=== PATIENT | female | born 1980 | race Caucasian/White ===

== ENCOUNTER 2020-01-22 15:24 | Inpatient (IN) | payer OTHER ==
[~2020-01-22] VITALS: Ht 167.6 cm; Wt 81.1 kg
--- NOTE | ~2020-01-22 | P ---
[facility] [place] [address] PROCEDURE REPORT Name: LISET VILLEGAS Room #: 464-P ADM IN M.R.#: [id number] Admission: 01/22/20 Attend Phys: India Garber MD Discharge: Date of : 82 Report #: [id number] THIS REPORT FOR: cc: Yung Alexander K. Steven DO McElhinney, Christian C. MD ~ CC: India Alexander DATE OF SERVICE: 01/23/2020 PROCEDURE PERFORMED: Upper endoscopy with biopsies. HISTORY OF PRESENT ILLNESS: The patient is a 39-year-old female who was admitted on 01/22/2020 with nausea, vomiting, generalized weakness. She has a history of alcohol abuse, been having nausea and vomiting for the last 4 days. Also, complains of dysphagia. No previous history of endoscopy. She does complain of heartburn symptoms. She does not take any antacids. She has also been hoarse for the same period of time. She was noted to be anemic with a hemoglobin of 9. She does report a small amount of bright red blood per rectum and a history of constipation. No previous history of colonoscopy and no family history of colon cancer. DESCRIPTION OF PROCEDURE: The risks and benefits of the procedure were explained to the patient, those risks including but not limited to bleeding, perforation and the risk of sedation. She understood these risks and gave informed consent. Sedation was given using propofol per anesthesia. Next, using a standard Olympus upper endoscope, the scope was placed in the patient's mouth and advanced under direct vision through the esophagus, stomach and into the second portion of the duodenum. The upper esophagus was normal. In the mid to distal esophagus, severe grade D erosive esophagitis was noted. Several biopsies were obtained to rule out the possibility of Gabby, CMV and herpes. I did not proceed with dilation today due to the severe esophagitis. The esophagus was mildly narrowed in the distal esophagus. Upon entering the stomach, a small hiatal hernia was noted. There was a moderate diffuse gastritis noted throughout the stomach. Several small clean white based ulcers approximately 2-3 mm in size were noted in the antrum. No evidence of bleeding. Biopsies were obtained to rule out H. pylori. The pylorus was normal and patent. The duodenal bulb, first and second portion were all normal. Biopsies were obtained to rule out the possibility of celiac sprue. The scope was then withdrawn and the procedure terminated. The patient tolerated the procedure well. IMPRESSION: 1. Severe grade D erosive esophagitis. [address] [address] PROCEDURE REPORT Name: VILLEGASLISET Room #: 464-P [facility] IN M.R.#: [id number] Admission: 01/22/20 Attend Phys: India Garber MD Discharge: Date of : 82 Report #: [id number] 2. Small hiatal hernia. 3. Moderate gastritis. 4. A few small tiny gastric ulcers in the antrum. RECOMMENDATIONS: 1. Recommend b.i.d. PPI therapy. 2. We will add liquid Carafate at this time. 3. Start clear liquids as tolerated and advance. Continue antinausea medications. 4. Await biopsy results. Thank you for allowing me to participate in her care. By: 1132 1844 Ulises Lee MD /nt
[~2020-01-22 15:24] MED LIST: ACETAMINOPHEN-1 EAC1 PO; ADULT LOW DOSE81 MG PO; AMLODIPINE BESYL5 M1 PO; CHLORDIAZEPOXID25 M1 PO; CLONIDINE HCL0.1 M1 PO; CLONIDINE HCL0.2 M2 PO; COZAAR 25 MG TA25 M1 PO; HYDROCHLOROTHIA25 M1 PO; NOHOMEMEDICATIONS; ULTRAM 50MG TAB50 MG PO; VITAMIN B-1100 M2 PO; ZOFRAN ODT4 MG PO
[2020-01-22 15:29] VITALS: BP 128/88
[2020-01-22] MEDS ORDERED: SERTRALINE HCL50 MG PO (15:34)
[2020-01-22 15:59] LABS: HEMATOCRIT 28.6 % (37.0-47.0); HEMOGLOBIN 9.9 gm/dL (12.0-15.0); MCH 37.8 pg (26.0-34.0); MCHC 34.6 g/dL (28.0-37.0); MCV 109.2 fL (80.0-100.0); RBC 2.62 mil/uL (4.20-5.00); RDW 14.7 % (10.5-14.5); WBC 7.7 thou/uL (4.0-11.0)
[2020-01-22 16:13] LABS: ANION GAP 14 mmol/L (7-16); BUN 10 mg/dL (7-18); CALCIUM 9.2 mg/dL (8.5-10.1); CHLORIDE 94 mmol/L (98-107); CO2 25 mmol/L (21-32); CREATININE 1.1 mg/dL (0.6-1.0); GLUCOSE 118 mg/dL (74-106); MAGNESIUM 1.1 mg/dL (1.8-2.4); SODIUM 133 mmol/L (136-145); TROPONIN-I <0.06 ng/mL (<0.06)
[2020-01-22 16:18] LABS: POTASSIUM 2.2 mmol/L (3.5-5.1)
[2020-01-22 19:10] LABS: ALBUMIN 3.1 g/dL (3.4-5.0); DIRECT BILIRUBIN 1.6 mg/dL (<0.1-0.2); TOTAL PROTEIN 7.4 g/dL (6.4-8.2)
[2020-01-22 20:52] LABS: HEMATOCRIT 24.4 % (37.0-47.0); HEMOGLOBIN 8.5 gm/dL (12.0-15.0)
[2020-01-23 00:29] VITALS: BP 93/60
[2020-01-23 03:56] VITALS: BP 115/75
[2020-01-23 06:06] VITALS: BP 103/73
--- NOTE | 2020-01-23 07:45 | EKG ---
[facility] [place] [address] ELECTROCARDIOGRAM REPORT Name: LISET VILLEGAS Room #: 464-P ADM IN M.R.#: [id number] Admission: 01/22/20 Attend Phys: India Garber MD Discharge: Date of : 82 Report #: [id number] THIS REPORT FOR: cc: Yung Alexander K. 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1980 Requested By: Fox Campbell Order Number: [id number] MD: Tyrone Chavez Measurements Intervals [place] Rate: 96 P: 53 [place]: 178 QRS: 61 QRSD: 99 T: 114 QT: 364 QTc: 460 Interpretive Statements Sinus rhythm Ventricular premature complex Nonspecific T abnrm, anterolateral leads Compared to ECG 03/19/2016 10:37:25 Ventricular premature complex(es) now present T-wave abnormality no longer present Electronically Signed On 01-23-2020 7:45:00 CDT by Tyrone Chavez [email or web address] <ELECTRONICALLY SIGNED> By: Tyrone Cahvez MD, FACC 01/23/20 0745 30 30 Tyrone Chavez MD, FACC /EPI
--- NOTE | 2020-01-23 08:13 | NUR ---
ASSUMED CARE OF PT AT 0555HRS. PT AOX4 AND LETS NEEDS BE KNOWN. PT WAS ORIENTED TO THE UNIT AND HER ROOM. PT SIGNED HER OWN CONSENTS. PT PUT ONN TELE. PT DENIES PAIN, NAUSEA OR SOA. REPORT GIVEN TO AM RAGHAV.
[2020-01-23 08:38] LABS: HEMATOCRIT 26.2 % (37.0-47.0); MCH 37.8 pg (26.0-34.0); MCHC 34.3 g/dL (28.0-37.0); MCV 110.1 fL (80.0-100.0); RBC 2.38 mil/uL (4.20-5.00); RDW 14.8 % (10.5-14.5); WBC 6.4 thou/uL (4.0-11.0)
[2020-01-23 09:04] LABS: ALBUMIN 2.8 g/dL (3.4-5.0); CALCIUM 8.4 mg/dL (8.5-10.1); CREATININE 0.9 mg/dL (0.6-1.0); TOTAL BILIRUBIN 1.8 mg/dL (0.2-1.0); TOTAL PROTEIN 6.8 g/dL (6.4-8.2)
[2020-01-23 09:09] LABS: POTASSIUM 2.9 mmol/L (3.5-5.1)
--- NOTE | 2020-01-23 11:41 | NUR ---
ASSUMED CARE AT 0700 TODAY. PT. NPO. SHE WENT FOR [facility] THIS MORNING. SEVERAL BYOPSIES TAKEN PER STAFF THERE. SHE WAS TO HAVE AN ABDOMINAL ULTRASOUND TODAY ALSO BUT DUE TO [facility] BEFORE ULTRASOUND, IT WAS POSTPONED UNTIL TOMORROW. PT. NPO AFTER MIDNIGHT FOR THIS REASON. PT. PLEASANT AND COOPERATIVE WITH PROCEEDURES AND ALL STAFF.
--- NOTE | 2020-01-23 12:30 | EKG ---
[facility] [place] [address] ELECTROCARDIOGRAM REPORT Name: LISET VILLEGAS Room #: 464-P ADM IN M.R.#: [id number] Admission: 01/22/20 Attend Phys: India Garber MD Discharge: Date of : 82 Report #: [id number] THIS REPORT FOR: cc: Yung Alexander K. Steven DO Lundgren, Craig H. MD [facility] THIS REPORT FOR: //name// [facility] ED Test Date: 2020-01-22 Test Time: 19:31:46 Pat Name: LISET VILLEGAS Department: Room: 464 Gender: F [employer]: MARY : 1980 Requested By: India Garber Order Number: [id number] MD: Antwan Durbin Measurements Intervals [place] Rate: 96 P: 53 [place]: 178 QRS: 61 QRSD: 99 T: 114 QT: 364 QTc: 460 Interpretive Statements Sinus rhythm Ventricular premature complex Nonspecific ST and T wave abnormality Compared to ECG 03/19/2016 10:37:25 Ventricular premature complex(es) now present T-wave abnormality no longer present Electronically Signed On 01-23-2020 12:30:36 CDT by Antwan Durbin [email or web address] <ELECTRONICALLY SIGNED> By: Antwan Durbin MD, FACC 01/23/20 1230 30 30 Antwan Durbin MD, FACC /EPI
[2020-01-23 16:00] VITALS: BP 113/77
[2020-01-23 17:40] VITALS: BP 113/77
[2020-01-23 19:29] VITALS: BP 118/83
[2020-01-24 00:25] VITALS: BP 93/60
[2020-01-24 04:38] VITALS: BP 110/77
[2020-01-24 05:22] LABS: HEMATOCRIT 24.7 % (37.0-47.0); HEMOGLOBIN 8.5 gm/dL (12.0-15.0)
--- NOTE | 2020-01-24 07:36 | NUR ---
ASSUMED PT CARE AROUND 1930. AXOX4. STB ASSIST. KEPT NPO POST MN FOR US ABD COMPLETED THIS AM. PREVIOUS DIET RESUMED. NO S/S ACUTE DISTRESS NOTED OR REPORTED AT THIS TIME. CARE TRANSFERRED TO AM RN AT THIS TIME.
[2020-01-24] MEDS ORDERED: PROTONIX40 M2 PO (08:31)
[2020-01-24] MEDS ORDERED: CARAFATE 11 GM/10 M1 PO (08:31)
[2020-01-24 09:51] VITALS: BP 122/88
[2020-01-24 12:32] VITALS: BP 122/88
[2020-01-24 14:28] LABS: URINE BILIRUBIN 3+ (Negative); URINE BLOOD TRACE (Negative); URINE CLARITY CLEAR; URINE COLOR YELLOW; URINE GLUCOSE-RANDOM* NEGATIVE (Negative); URINE KETONES 1+ (Negative); URINE PROTEIN (DIPSTICK) 1+ (Negative); URINE SPECIFIC GRAVITY 1.025 (1.005-1.035)
[2020-01-24 14:29] LABS: URINE LEUKOCYTES-REFLEX 1+ (Negative); URINE NITRITE-REFLEX POSITIVE (Negative)
[2020-01-24 14:30] LABS: ICTOTEST (BILI CONFIRMATORY) Positive (Negative)
[2020-01-24 14:33] LABS: SQUAMOUS 0-3 Few /LPF (0-3)
[2020-01-24 14:35] LABS: HYALINE CASTS 0-3 Few /LPF (None Seen); URINE RBC 0-2 Rare /HPF (0-2)
[2020-01-24 14:36] LABS: CRYSTALS None Seen /LPF (None Seen)
[2020-01-24 14:37] LABS: URINE WBC-REFLEX 0-5 Rare /HPF (0-5)
[2020-01-24 14:48] LABS: AMP/METHAMP Negative (Negative); BARBITURATES Negative (Negative); BENZODIAZEPINES POSITIVE (Negative); COCAINE Negative (Negative); METHADONE Negative (Negative); OPIATES Negative (Negative); PCP POSITIVE (Negative)
--- NOTE | 2020-01-24 16:55 | NUR ---
PT A&OX4, VSS, DENIES PAIN. PATIENT DENIES N/V. PATIENT MOVED TO FULL LIQUIDS AND TOLERATED. PATIENT DISCHARGED HOME, IV REMOVED, ALL BELONGINGS TAKE. NO DISTRESS AT TIME OF DISCHARGE. PATIENT COMMUNICATES UNDERSTANDING OF DISCHARGE PAPERWORK. TELE MONITOR REMOVED.
--- NOTE | 2020-01-27 16:06 | PATH ---
[facility] [place] [address] PATHOLOGY RPT PROCEDURE Name: MELBA VILLEGAS Room #: 464-P DIS IN M.R.#: [id number] Admission: 01/22/20 Date of : 82 Discharge: 01/24/20 Report #: [id number] Path Case #: [id number] [facility] Accession Number: [id number] . 01 Material submitted: . PART A: duodenum - BIOPSY OF DUODENUM R/O SPRUE PART B: stomach - BIOPSY OF GASTRITIS R/O H. PYLORI PART C: esophagus - BIOPSY OF ESOPHAGUS R/O CMV, GABBY, HERPES . 01 Clinical history: . N/V, HYPOK, HYPOMAG, COVID PUI . 02 Diagnosis: A. Small bowel mucosa, duodenum R/O sprue, endoscopic biopsy: - Moderate acute and chronic duodenitis associated with villous blunting. - Negative for increase in intraepithelial lymphocytes. - No definite dysplasia identified. . B. Gastric mucosa, gastritis R/O H. pylori, endoscopic biopsy: - Mild active gastritis with features of reactive gastropathy. - Negative for intestinal metaplasia or atrophy. - Negative for Helicobacter pylori (properly controlled immunohistochemical stain performed). . C. Squamous mucosa, esophagus, endoscopic biopsy: - Fragments of an ulcer with focal squamous epithelium showing marked reactive changes. (Please see comment). - No definite intestinal metaplasia or dysplasia present. (IUV:reginaldo; 01/26/2020) S 01/26/2020 1319 Local . 02 Comment: Part A: Examination shows focal fundic-type metaplasia in a background of moderate acute and chronic nonspecific duodenitis. The findings may be suggestive of peptic duodenitis. Villous blunting is identified in association with the peptic duodenitis. The lack of increase in intraepithelial lymphocytes argues against sprue. . Part C: Special stain GMS fungal stain, and CMV* as well as HSV1* are ordered on block C1. The results of these will be reported in an addendum to follow. (IUV:reginaldo; 01/26/2020) . . *This test was developed and its performance characteristics determined by [facility]. It has not been cleared or approved by the U.S. Food and Drug Administration. The FDA has determined that such clearance or approval is [address] [address] PATHOLOGY RPT PROCEDURE Name: MELBA VILLEGAS Room #: 464-P DIS IN M.R.#: [id number] Admission: 01/22/20 Date of : 82 Discharge: 01/24/20 Report #: [id number] Path Case #: [id number] not necessary. This test is used for clinical purposes. It should not be regarded as investigational or for research. This laboratory is certified under the Clinical Laboratory Improvement Amendments of 1988 (CLIA) as qualified to perform high complexity clinical laboratory testing. . 02 Addendum: . Addendum is issued subsequent to reviewing well-controlled stains. . Block C1 . Special stain GMS - No definite fungal elements identified. . *CMV immunohistochemical stain - No definite CMV identified. . *HSV1 immunohistochemical stain - No definite herpes identified. . The originally rendered diagnosis remains unchanged. (IUV:01/27/20) . . *This test was developed and its performance characteristics determined by [facility]. It has not been cleared or approved by the U.S. Food and Drug Administration. The FDA has determined that such clearance or approval is not necessary. This test is used for clinical purposes. It should not be regarded as investigational or for research. This laboratory is certified under the Clinical Laboratory Improvement Amendments of 1988 (CLIA) as qualified to perform high complexity clinical laboratory testing. . . Professional services performed by [facility] at [facility], [address] [place], [place] [address] , [place] [address]. Technical services performed by [facility] at [address] [place] [address], [address] [place] [address]. [facility], [facility]/01/27/2020 Addendum Electronically Signed by Narcisa Myers MD, Pathologist . 02 Electronically signed: . Narcisa Myers MD, Pathologist NPI- [id number] . 01 Gross description: . A. Received in formalin labeled "Melba Villegas, BX of duodenum rule out sprue" are multiple duong-brown soft tissue fragments measuring in aggregate 0.8 x 0.5 x 0.1 cm. The specimen is submitted entirely in A1. . B. Received in formalin labeled "Melba Villegas, BX of gastritis rule out H. pylori" are multiple duong-brown soft tissue fragments measuring in aggregate 0.5 x 0.3 x 0.1 cm. The specimen is submitted entirely in B1. . [facility] [address] [place] [address] PATHOLOGY RPT PROCEDURE Name: VILLEGASMELBA Room #: 464-P DIS IN M.R.#: [id number] Admission: 01/22/20 Date of : 82 Discharge: 01/24/20 Report #: [id number] Path Case #: [id number] C. Received in formalin labeled "Melba Villegas, BX of esophagus rule out CMV, herpes, Gabby" are multiple duong-brown soft tissue fragments measuring in aggregate 0.4 x 0.3 x 0.1 cm. The specimen is submitted entirely in C1. ([facility] 01/25/2020) [facility] 01/25/2020 1042 Local . 02 Pathologist provided ICD-10: K29.80, K29.70, K22.10 . 02 CPT . 725685, 071247, 457760, Q08956, U86421, 889868 Specimen Comment: A courtesy copy of this report has been sent to [phone] Specimen Comment: [phone], Specimen Comment: Report sent to ,DR CARO / DR JAIME Performed at: 01 [facility] [address] [facility] [address] [place] [id number] MD Mert Arriola MD Phone: [phone] Performed at: [address] [facility] [id number] MD Narcisa Myers MD Phone: [phone]
== END 2020-01-24 17:08 | disposition home or self-care (01) | DRG 392 ==
LOC: ER 15:24 → EROBS 17:48 → 4W 01-23 05:48
PROVIDERS: Emergency Medicine; ADMIT Hospitalist; ATTEND Hospitalist
PROC: 0DB28ZX Excision of Middle Esophagus, Via Natural or Artificial Opening Endoscopic, Diagnostic (ICD-10-PCS; principal; 2020-01-22)
PROC: 0DB68ZX Excision of Stomach, Via Natural or Artificial Opening Endoscopic, Diagnostic (ICD-10-PCS; principal; 2020-01-22)
PROC: 0DB98ZX Excision of Duodenum, Via Natural or Artificial Opening Endoscopic, Diagnostic (ICD-10-PCS; principal; 2020-01-22)
PROC: 0DB38ZX Excision of Lower Esophagus, Via Natural or Artificial Opening Endoscopic, Diagnostic (ICD-10-PCS; principal; 2020-01-22)
DX: K29.00 Acute gastritis without bleeding (principal); E87.1 Hypo-osmolality and hyponatremia; R65.10 Systemic inflammatory response syndrome (SIRS) of non-infectious origin without acute organ dysfunction; N17.9 Acute kidney failure, unspecified; K44.9 Diaphragmatic hernia without obstruction or gangrene; K21.00 Gastro-esophageal reflux disease with esophagitis, without bleeding; D64.9 Anemia, unspecified; E87.6 Hypokalemia; E83.42 Hypomagnesemia; F32.9 Major depressive disorder, single episode, unspecified; F10.11 Alcohol abuse, in remission; E86.0 Dehydration; F41.9 Anxiety disorder, unspecified; I10 Essential (primary) hypertension; Z20.828 Contact with and (suspected) exposure to other viral communicable diseases; Z79.899 Other long term (current) drug therapy; Z87.891 Personal history of nicotine dependence
CPT/HCPCS: 10045; 62110; 62900; 70005

== ENCOUNTER 2020-02-24 16:18 | Emergency (ER) | payer OTHER ==
[~2020-02-24] VITALS: Ht 162.6 cm; Wt 72.6 kg
[~2020-02-24 16:18] MED LIST changes: +CARAFATE 11 GM/10 M1 PO; +CHLORDIAZEPOXIDE5 M2 PO; +PROTONIX40 M2 PO; +SERTRALINE HCL50 MG PO
[2020-02-24 16:21] VITALS: BP 128/85
[2020-02-24] MEDS ORDERED: MOBIC15 MG PO (17:19)
== END 2020-02-24 17:44 | disposition home or self-care (01) ==
LOC: ER 16:18
DX: S80.01XA Contusion of right knee, initial encounter (principal); I10 Essential (primary) hypertension; F17.210 Nicotine dependence, cigarettes, uncomplicated; Z79.899 Other long term (current) drug therapy; V49.9XXA Car occupant (driver) (passenger) injured in unspecified traffic accident, initial encounter; Y93.89 Activity, other specified; Y92.410 Unspecified street and highway as the place of occurrence of the external cause; Y99.8 Other external cause status

== ENCOUNTER 2020-03-31 11:33 | Emergency (ER) | payer OTHER ==
[~2020-03-31] VITALS: Ht 170.2 cm; Wt 68.0 kg
[~2020-03-31 11:33] MED LIST changes: +MOBIC15 MG PO
[2020-03-31] MEDS ORDERED: AMLODIPINE BESY10 MG PO (12:01)
[2020-03-31 13:01] LABS: URINE BILIRUBIN 2+ (Negative); URINE BLOOD 2+ (Negative); URINE CLARITY SL CLOUDY; URINE COLOR BROWN; URINE GLUCOSE-RANDOM* TRACE (Negative); URINE KETONES 1+ (Negative); URINE PROTEIN (DIPSTICK) 1+ (Negative); URINE SPECIFIC GRAVITY 1.025 (1.005-1.035)
[2020-03-31 13:03] LABS: URINE LEUKOCYTES-REFLEX 2+ (Negative); URINE NITRITE-REFLEX POSITIVE (Negative)
[2020-03-31 13:04] LABS: ABSOLUTE NEUTROPHILS 3.5 thou/uL (1.4-8.2); BASOPHILS 0.9 % (0.0-2.0); EOSINOPHILS 2.1 % (0.0-3.0); HEMATOCRIT 38.4 % (37.0-47.0); HEMOGLOBIN 12.7 gm/dL (12.0-15.0); LYMPHOCYTES 34.4 % (24.0-44.0); MCH 34.3 pg (26.0-34.0); MCHC 33.1 g/dL (28.0-37.0); MCV 103.7 fL (80.0-100.0); MONOCYTES 5.1 % (1.0-8.0); PLATELET COUNT 224 thou/uL (150-400); POLYS 57.5 % (36.0-66.0); RBC 3.71 mil/uL (4.20-5.00); RDW 14.4 % (10.5-14.5); WBC 6.1 thou/uL (4.0-11.0)
[2020-03-31 13:05] LABS: ICTOTEST (BILI CONFIRMATORY) Positive (Negative)
[2020-03-31 13:29] LABS: CALCIUM 8.6 mg/dL (8.5-10.1); CREATININE 0.5 mg/dL (0.6-1.0); MUCUS 4-6 Moderate strn/LPF (None Seen); SQUAMOUS 0-3 Few /LPF (0-3)
[2020-03-31 13:30] LABS: AMORPHOUS URATES Moderate /LPF (None Seen); CASTS None Seen /LPF (None Seen)
[2020-03-31 13:32] LABS: BACTERIA-REFLEX >30 Many /HPF (None Seen); URINE RBC 3-10 Few /HPF (0-2); URINE WBC-REFLEX 6-15 Few /HPF (0-5)
[2020-03-31 13:36] LABS: ALBUMIN 2.7 g/dL (3.4-5.0); TOTAL BILIRUBIN 0.8 mg/dL (0.2-1.0); TOTAL PROTEIN 7.6 g/dL (6.4-8.2)
[2020-03-31 14:34] LABS: FOLIC ACID 1.8 ng/mL (8.6-58.9)
[2020-03-31] MEDS ORDERED: FOLTX TABLET1 EAC1 PO (15:09)
[2020-03-31] MEDS ORDERED: POTASSIUM20 PO (15:09)
[2020-03-31] MEDS ORDERED: KEFLEX500 M1 PO (15:09)
[2020-03-31] MEDS ORDERED: VITAMIN B-1100 M2 PO (15:30)
[2020-03-31 16:00] VITALS: BP 112/86
== END 2020-03-31 16:05 | disposition home or self-care (01) ==
LOC: ER 11:33
PROVIDERS: Physician Assistant
DX: G62.1 Alcoholic polyneuropathy (principal); N39.0 Urinary tract infection, site not specified; E87.6 Hypokalemia; E53.8 Deficiency of other specified B group vitamins; I10 Essential (primary) hypertension; F17.210 Nicotine dependence, cigarettes, uncomplicated; Z79.899 Other long term (current) drug therapy

== ENCOUNTER 2020-05-17 16:56 | Inpatient (IN) | payer OTHER ==
[~2020-05-17] VITALS: Ht 170.2 cm; Wt 102.9 kg
[~2020-05-17 16:56] MED LIST changes: +AMLODIPINE BESY10 MG PO; +FOLTX TABLET1 EAC1 PO; +KEFLEX500 M1 PO; +POTASSIUM20 PO
[2020-05-17 16:58] VITALS: BP 95/56
[2020-05-17 17:45] LABS: HEMATOCRIT 23.3 % (37.0-47.0)
[2020-05-17 17:47] LABS: HEMOGLOBIN 7.9 gm/dL (12.0-15.0); MCV 105.6 fL (80.0-100.0); PLATELET COUNT 192 thou/uL (150-400); RBC 2.21 mil/uL (4.20-5.00); RDW 17.6 % (10.5-14.5); WBC 24.3 thou/uL (4.0-11.0)
[2020-05-17 17:53] LABS: ANION GAP 14 mmol/L (7-16); BUN 27 mg/dL (7-18); CALCIUM 7.9 mg/dL (8.5-10.1); CHLORIDE 96 mmol/L (98-107); CO2 23 mmol/L (21-32); CREATININE 4.1 mg/dL (0.6-1.0); GLUCOSE 127 mg/dL (74-106); POTASSIUM 3.6 mmol/L (3.5-5.1); SODIUM 133 mmol/L (136-145)
[2020-05-17 18:13] LABS: ALBUMIN 1.1 g/dL (3.4-5.0); LIPASE 43 U/L (73-393); MAGNESIUM 1.8 mg/dL (1.8-2.4); SGOT 121 U/L (15-37); SGPT 51 U/L (30-65); TOTAL BILIRUBIN 16.2 mg/dL (0.2-1.0); TOTAL PROTEIN 5.7 g/dL (6.4-8.2); TROPONIN-I <0.06 ng/mL (<0.06)
[2020-05-17 19:57] LABS: APTT 74.5 Seconds (24.5-32.8); INR 2.9; PROTIME 30.3 Seconds (9.3-11.4)
[2020-05-17 20:06] LABS: ABSOLUTE NEUTROPHILS 12.4 thou/uL (1.4-8.2); NUCLEATED RBCS 1 /100WBC
[2020-05-17 20:08] LABS: ANISOCYTOSIS 1+; HYPOCHROMASIA SLIGHT; MACROCYTES 1+
[2020-05-17 22:37] LABS: URINE BILIRUBIN 3+ (Negative); URINE BLOOD TRACE (Negative); URINE CLARITY CLOUDY; URINE COLOR BROWN; URINE GLUCOSE-RANDOM* TRACE (Negative); URINE KETONES 1+ (Negative); URINE LEUKOCYTES-REFLEX TRACE (Negative); URINE NITRITE-REFLEX NEGATIVE (Negative); URINE PROTEIN (DIPSTICK) 2+ (Negative); URINE SPECIFIC GRAVITY 1.025 (1.005-1.035)
[2020-05-17 22:39] LABS: ICTOTEST (BILI CONFIRMATORY) Positive (Negative)
[2020-05-17 22:42] LABS: FINE GRANULAR CASTS 0-3 Few /LPF (None Seen); HYALINE CASTS 4-10 Moderate /LPF (None Seen); MUCUS 0-3 Light strn/LPF (None Seen); SQUAMOUS 4-10 Moderate /LPF (0-3); TRANSITIONAL EPITHEL CELL 4-10 Moderate /LPF (None Seen)
[2020-05-17 22:43] LABS: BACTERIA-REFLEX 1-9 Few /HPF (None Seen); CRYSTALS None Seen /LPF (None Seen); URINE RBC 0-2 Rare /HPF (0-2); URINE WBC-REFLEX 0-5 Rare /HPF (0-5)
[2020-05-17 22:57] LABS: PROT/CREAT RATIO 0.7; URINE CREATININE-RANDOM* 332.5 mg/dL; URINE PROTEIN-RANDOM* 233.6 mg/dL (<11.9)
[2020-05-18] VITALS (8 sets, daily range): BP systolic 83–104; BP diastolic 37–61
--- NOTE | 2020-05-18 06:48 | EKG ---
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1980 Requested By: Adrian Vigil Order Number: [id number] MD: Tyrone Chavez Measurements Intervals [place] Rate: 77 P: 42 NV: 169 QRS: 45 QRSD: 100 T: 87 QT: 474 QTc: 537 Interpretive Statements Sinus rhythm Low voltage, extremity leads Prolonged QT interval Baseline wander in lead(s) V1,V2 Compared to ECG 02/04/2020 18:29:43 Low QRS voltage now present ST (T wave) deviation no longer present Electronically Signed On 05-18-2020 6:48:31 DOG WALKER by Tyrone Chavez [email or web address] <ELECTRONICALLY SIGNED> By: Tyrone Chavez MD, FACC 05/18/20 0648 21 21 Tyrone Chavez MD, [facility] /EPI
[2020-05-18 07:54] LABS: RBC 1.81 mil/uL (4.20-5.00)
[2020-05-18 07:55] LABS: MCHC 33.9 g/dL (28.0-37.0); MCV 106.1 fL (80.0-100.0); WBC 20.5 thou/uL (4.0-11.0)
[2020-05-18 08:04] LABS: HEMOGLOBIN 6.5 gm/dL (12.0-15.0)
[2020-05-18 08:06] LABS: HEMATOCRIT 19.2 % (37.0-47.0)
[2020-05-18 08:20] LABS: ALBUMIN 1.7 g/dL (3.4-5.0); CALCIUM 7.5 mg/dL (8.5-10.1); CREATININE 3.9 mg/dL (0.6-1.0); TOTAL BILIRUBIN 17.4 mg/dL (0.2-1.0); TOTAL PROTEIN 5.2 g/dL (6.4-8.2)
[2020-05-18 08:25] LABS: POTASSIUM 2.3 mmol/L (3.5-5.1)
[2020-05-18 10:12] LABS: FOLIC ACID 29.6 ng/mL (8.6-58.9)
[2020-05-18 16:36] LABS: HEMATOCRIT 18.7 % (37.0-47.0)
[2020-05-18 16:39] LABS: HEMOGLOBIN 6.2 gm/dL (12.0-15.0)
--- NOTE | 2020-05-18 16:45 | NUR ---
SPOKE TO DR. JAIME ABOUT CRITICAL H&H, REPORTED SHE WOULD ENTER IN ORDERS FOR THE NURSE TAKING OVER QASIM.
--- NOTE | 2020-05-18 17:45 | NUR ---
PT ADMITTED TO CCU FOR HEPATIC FAILURE, PT TO THE FLOOR VIA BED. pT SKIN COLOR JAUNDICED AND SCLERA UPON ASSESSMENT ABDOMEN DISTENDED AND TENDER, C/O FREQUENT STOOLS BUT DIFFICULTY URINATING AT HOME, CATHETER PRESENT UPON ARRIVAL, DARK MAINOR URINE NOTED. IV IN LAC WITH FLUIDS RUNNING AND K REPLACEMENT, PT IS X2 ASSIST D/T WEAKNESS. CALL LIGHT IN REACH AND ROOM ORIENTATED. PT IS NPO
[2020-05-18 17:49] LABS: INR 2.4; PROTIME 25.5 Seconds (9.3-11.4)
--- NOTE | 2020-05-18 20:06 | NUR ---
REVIEWED ALL CHARTING AND DOCUMENTATION COMPLETED BY MARLIN Pan, THIS NURSE AGREES WITH ALL CURRENT CHARTING AND DOCUMENTATION.
[2020-05-18 22:54] LABS: HEMATOCRIT 31.8 % (37.0-47.0)
[2020-05-18 22:55] LABS: HEMOGLOBIN 10.9 gm/dL (12.0-15.0)
[2020-05-19 04:45] VITALS: BP 101/51
--- NOTE | 2020-05-19 06:35 | NUR ---
PATIENT SLEPT THROUGH MOST THE NIGHT. PT WAS GETTING INCREASINGLY ANXIOUS. SUSAN PROTOCAL; SCORES OF 9. PRN MEDS GIVEN. CABRAL PRESENT. PT IS CURRENTLY NPO. VSS. POTASSIUM GETTING REPLACED. PT SKIN AND SCERLA JAUNDICED. NO COMPLAINTS OF DISCOMFORT. ON 2L. ASSESSMENTS CHARTED. MEDS GIVEN PER EMAR. CONTINUING TO ASSESS ACCORDING TO POC.
[2020-05-19 06:40] LABS: HEMATOCRIT 29.7 % (37.0-47.0); HEMOGLOBIN 9.9 gm/dL (12.0-15.0)
[2020-05-19 07:16] LABS: ALBUMIN 1.5 g/dL (3.4-5.0); CALCIUM 7.8 mg/dL (8.5-10.1); DIRECT BILIRUBIN 15.1 mg/dL (<0.1-0.2); PHOSPHORUS 2.6 mg/dL (2.6-4.7); POTASSIUM 3.4 mmol/L (3.5-5.1); TOTAL PROTEIN 5.2 g/dL (6.4-8.2)
[2020-05-19 07:18] LABS: CREATININE 3.2 mg/dL (0.6-1.0); TOTAL BILIRUBIN 19.6 mg/dL (0.2-1.0)
[2020-05-19 07:34] LABS: PROTIME 21.7 Seconds (9.3-11.4)
[2020-05-19 08:30] VITALS: BP 105/59
[2020-05-19 11:15] VITALS: BP 99/50
--- NOTE | 2020-05-19 14:05 | NUR ---
Case opened to follow for dc planing. Pt known to cm from a previous admission in February 2020. The pt is being treated for ethol w/d and hepatic failure. CIWA this am was 9. EGD per GI. Pt groggy this morning due to ativan. Therapy evals deferred until tomorrow. Pt's mother Merna called with banking info for [place]. They have been working with the pt on supporting documentatin for her [place] medicaid application which is pending. [employer] alerted to f/u with pt's mother. Pt's mother reports that the pt lives in her own apt with a roommate neither currently have any source of income and pt's mother can no longer help pay the rent. She has been taking the pt to the grocery store and buying her food. Pt's mother notes the pt's mobility has worsened recently and she has 5 steps in to her apt. She came to her mother's house a few days ago to stay as she has been feeling worse. The pt does not drive. Pt's mother states she hopes the pt will be open to inpt ethol treatment when stable. She feels her friends bring it to her. She notes that the pt had called a treatment program who told her they were full but to call them again in May if she still wants inpt tx;she does not know which program she spoke with. The pt reports recent falls and numbness in her legs as well as jaundice x 2wks. Pt with long hx of ethol and substance abuse. Will follow up with the pt as her mental status improves to discuss dc planning recommendations and possible inpt treatment at [facility]. Will follow.
[2020-05-19 16:30] VITALS: BP 100/63
--- NOTE | 2020-05-19 17:43 | NUR ---
assumed care of pt at 0700. pt aox4 drowsy, soft spoken, severely weak, unable to hold limbs upright. egd performed today. findings documented. anxious and impulsive at times, making attempts to get out of bed. vitals stable. breathing labored on 3L NC. potassium replaced per protocol. blood tinged urine noted. spoke with mother regarding plan of care. wcm.
[2020-05-19 19:18] VITALS: BP 106/63
[2020-05-20] VITALS (17 sets, daily range): BP systolic 101–125; BP diastolic 56–77
[2020-05-20 03:51] LABS: HEMOGLOBIN 11.3 gm/dL (12.0-15.0); MCH 33.2 pg (26.0-34.0); MCHC 33.2 g/dL (28.0-37.0); PLATELET COUNT 117 thou/uL (150-400); WBC 23.9 thou/uL (4.0-11.0)
[2020-05-20 03:54] LABS: MCV 99.8 fL (80.0-100.0)
[2020-05-20 04:38] LABS: MAGNESIUM 1.7 mg/dL (1.8-2.4); PHOSPHORUS 2.9 mg/dL (2.5-4.9)
[2020-05-20 04:54] LABS: ALBUMIN 1.5 g/dL (3.4-5.0); DIRECT BILIRUBIN 17.7 mg/dL (<0.1-0.2); TOTAL PROTEIN 5.1 g/dL (6.4-8.2)
[2020-05-20 04:56] LABS: TOTAL BILIRUBIN 20.8 mg/dL (0.2-1.0)
[2020-05-20 05:26] LABS: ABSOLUTE NEUTROPHILS 20.1 thou/uL (1.4-8.2)
[2020-05-20 05:27] LABS: ANISOCYTOSIS 2+
[2020-05-20 08:03] LABS: CALCIUM 8.2 mg/dL (8.5-10.1); CREATININE 2.6 mg/dL (0.6-1.0)
--- NOTE | 2020-05-20 09:34 | NUR ---
ASSUMED CARE FOR PT AT 0700. PT LAYING IN BED, PT ALERT TO SELF. PT FOLLOWS COMMANDS. PT APPEARS CALM, HOWEVER LETHARGIC. VSS. WILL CONTINUE TO MONITOR PT.
[2020-05-20 11:07] LABS: INR 1.8; PROTIME 19.2 Seconds (9.3-11.4)
--- NOTE | 2020-05-20 11:12 | NUR ---
ATTEMPTED TO ADMINISTER LACTULOSE TO PATIENT. PT UNABLE TO DRINK THE MEDICATION. PT REMAINS LETHARGIC, DR WILL BE MADE AWARE. WILL CONTINUE TO MONITOR.
--- NOTE | 2020-05-20 13:52 | NUR ---
ECHO LILLIE IN ROOM, DR JAIME ORDER ICU TRANSFER AND LACTULOSE ENEMA. WILL ATTEMPT TO ADMINISTER UPON ECHO COMPLETION.
[2020-05-20 14:18] LABS: BE(vivo) -9.4 mmol/L (-2 to +3); HCO3 16.3 mmol/L (22.0-26.0); PCO2 34.9 mmHg (35.0-45.0); PO2 75.7 mmHg (80.0-100.0); pH 7.288 (7.360-7.450); sO2 93.8 % (92.0-98.0)
--- NOTE | 2020-05-20 14:27 | 2DMMODE ---
[facility] [place] [address] 2 D/M-MODE ECHOCARDIOGRAM Name: LISET VILLEGAS Room #: 251-P ADM IN M.R.#: [id number] Admission: 05/17/20 Attend Phys: India Garber MD Discharge: Date of : 82 Report #: [id number] THIS REPORT FOR: cc: FAM - Family physician unknown FAM - Family physician unknown Tyrone Chavez MD [facility] ~ APPROVED REPORT Study performed: 05/20/2020 13:33:12 EXAM: Comprehensive 2D, Doppler, and color-flow Echocardiogram Patient Location: Bedside Room #: 219 Status: routine BSA: 1.92 HR: 90 bpm BP: 103/60 mmHg Rhythm: NSR Other Information Study Quality: Good/no patient cooperation Indications Bacteremia. Hx: HTN ETOH/Tob/Polysubstance abuse. 2D Dimensions RVDd: 30.78 mm IVSd: 10.00 (7-11mm) LVOT Diam: 21.69 (18-24mm) LVDd: 41.68 mm PWd: 10.36 (7-11mm) Ascending Ao: 27.70 (22-36mm) LVDs: 28.15 (25-40mm) Left Atrium: 40.62 (27-40mm) Aortic Root: 24.40 mm Volumes Left Atrial Volume (Systole) Single Plane 4CH: 107.92 mL Single Plane 2CH: 83.88 mL Aortic Valve AoV Peak Wade.: 1.46 m/s AO Peak Gr.: 8.57 mmHg LVOT Max P.36 mmHg LVOT Max V: 1.36 m/s [facility] [address] [place] [address] 2 D/M-MODE ECHOCARDIOGRAM Name: LISET VILLEGAS Room #: 251-P [facility] IN .R.#: [id number] Admission: 05/17/20 Attend Phys: Dewey Unger Discharge: Date of : 82 Report #: [id number] JENNA Vmax: 3.42 cm2 Mitral Valve E/A Ratio: 1.4 MV Decel. Time: 163.95 ms MV E Max Wade.: 1.16 m/s MV A Wade.: 0.82 m/s MV PHT: 47.55 ms IVRT: 51.90 ms Pulmonary Valve PV Peak Wade.: 1.01 m/s PV Peak Gr.: 4.08 mmHg Pulmonary Vein P Vein S: 1.06 m/s P Vein A: 0.34 m/s P Vein D: 0.75 m/s P Vein A Dur.: 124.6 msec P Vein S/D Ratio: 1.41 Tricuspid Valve TR Peak Wade.: 2.47 m/s TR Peak Gr.: 24.40 mmHg Left Ventricle The left ventricle is normal size. There is normal LV segmental wall motion. There is normal left ventricular wall thickness. Left ventricular systolic function is normal. LVEF is 60%. The left ventricular diastolic function is normal. Right Ventricle The right ventricle is normal size. The right ventricular systolic function is normal. Atria Left atrium is mildly dilated. The right atrium size is normal. Aortic Valve The aortic valve is normal in structure. No aortic regurgitation is present. There is no aortic valvular stenosis. Mitral Valve The mitral valve is normal in structure. There is no mitral valve regurgitation noted. No evidence of mitral valve stenosis. Tricuspid Valve The tricuspid valve is normal in structure. Trace tricuspid [facility] [address] [place] [address] 2 D/M-MODE ECHOCARDIOGRAM Name: LISET VILLEGAS Room #: 251-P ADM IN M.R.#: [id number] Admission: 05/17/20 Attend Phys: Dewey Unger Discharge: Date of : 82 Report #: [id number] regurgitation. Est. PAP: 24 + RAP. Pulmonic Valve The pulmonary valve is normal in structure. There is no pulmonic valvular regurgitation. Great Vessels The aortic root is normal in size. The ascending aorta is normal in size. IVC is not well visualized. Pericardium There is no pericardial effusion. <Conclusion> Normal left ventricular size/wall thickness Ejection fraction 60% Normal right ventricular size/function Left atrium mildly dilated Color-flow Doppler study was performed of the aortic/mitral/tricuspid/pulmonary valve Normal aortic/mitral valve structure and function Trace tricuspid valve insufficiency Pulmonary systolic pressure estimated around 29 mmHg No pericardial effusion <ELECTRONICALLY SIGNED> By: Tyrone Chavez MD, FACC 05/20/201426 26 26 Tyrone Chavez MD, FACC /INF
--- NOTE | 2020-05-20 15:44 | NUR ---
PT TRANSFERRED TO ICU PRIOR TO P.T. EVALUATION. REQUEST NEW P.T. ORDER ONCE PT DEEMED MEDICALLY STABLE AND ABLE TO PARTICIPATE IN THERAPY INTERVENTIONS.
--- NOTE | 2020-05-20 17:18 | NUR ---
Case discussed with the care team this am and now transfered to ICU with worsening hepatic /kidney failure. The attending to update the pt's mother. Her condition is guarded. Will follow for support.
--- NOTE | 2020-05-20 21:04 | NUR ---
CONSULTED FOR A CENTRAL LINE FOR A PATIENT IN ICU. ORDER AND CONSENT NOTED. A CENTRAL LINE WAS PLACED PER HOSPITAL POLICY ON THE 2ND ATTEMPT. SEDATION WAS NEEDED FOR PLACEMENT. A STAT CHEST XRAY SHOWING LINE DEEP AND LINE WAS PULLED BACK REQUESTED AND RELEASED FOR USE
--- NOTE | 2020-05-20 21:10 | NUR ---
1500-RECEIVED TRANSFER FROM CCU INTO [facility] VIA BED W ALL BELONGINGS. IN TO SEE.--VW
[2020-05-21] VITALS (81 sets, daily range): BP systolic 80–137; BP diastolic 40–89
--- NOTE | 2020-05-21 03:52 | NUR ---
ASSUMED PT CARE AT 1900. VSS. PT LETARGIC, AND DROWSY. PT OPENS EYES TO VOICE AND COMMAND. FMS PLACED TO ATTEMPT TO GIVE PT LACTOLOSE SHE IS NPO DUE TO HER LOC. RN UNABLE TO ADMINISER FMS DUE TO UNAVAILABLE IRRIGATION POT SYRINGE. LEIDA JAFFE NOTIFIED, NG PLACEMENT RECOMMENDED. THIS RN PLACED NG TUBE, WAITING ON XRAY TO CONFIRM PLACEMENT BEFORE NG CAN BE USD TO GIVE LACTULOSE. PT IS STABLE, STILL TACHYPNEIC, SLIGHTLY RESTLESS, WILL CONTINUE TO MONITOR PER POC.
--- NOTE | 2020-05-21 06:41 | NUR ---
PATIENT TRANSFER TO ICU, WILL PLACE ON HOLD. WILL NEED NEW ORDERS WHEN APPROPRIATE FOR OCCUPATIONAL THERAPY INTERVENTIONS.
--- NOTE | 2020-05-21 08:27 | HC ---
[facility] [place] [address] CONSULTATION Name: LISET VILLEGAS Room #: 251-P ADM IN M.R.#: [id number] Admission: 05/17/20 Attend Phys: India Garber MD Discharge: Date of : 82 Report #: [id number] THIS REPORT FOR: cc: FAM - Family physician unknown FAM - Family physician unknown Balta Phillips MD ~ DATE OF SERVICE: 05/20/2020 INFECTIOUS DISEASE CONSULTATION ATTENDING PHYSICIAN: Dr. Garber. REASON FOR EVALUATION: Enterococcal bacteremia. HISTORY OF PRESENT ILLNESS: Chart reviewed, patient examined. This is a 40-year-old woman with extensive medical history primarily alcohol abuse, hypertension, who was admitted through the Emergency Room with complaints of leg pain, apparently worsening neuropathy. Apparently, she has had some falls as well. She is actively drinking, presented with hepatorenal syndrome and marked hyperbilirubinemia with jaundice, also evidence of bloody stools. Further evaluation, blood cultures 1 out of 2 is growing Enterococcus faecalis. Urinalysis was otherwise unremarkable. Chest x-ray, no evidence of any pneumonitis. Did undergo EGD, which showed severe erosive esophagitis, evidence of a small Dee-March tears, mild portal hypertension and gastropathy in October. She was empirically placed on vancomycin and Zosyn. She really was unable to give any details of her history. She is somnolent, difficult to arouse. She appears quite encephalopathic, ____ level was elevated. CT of the abdomen and pelvis did not show any particular focus of pyogenic infection. Lactic acid was normal range at 1.6. Most recent bilirubin of 20.8. White count of 23.9. COVID testing was negative. ALLERGIES: None known. CURRENT MEDICATIONS: Include lactulose, pantoprazole, thiamine, vitamin, nicotine patch, Zosyn, ____, lorazepam, flumazenil, ____, albuterol inhaler, p.r.n. ondansetron, given a dose of vancomycin on the . PAST MEDICAL HISTORY: As noted above, hypertension, history of ongoing ETOH abuse with advanced liver disease, hepatorenal syndrome, anxiety and depression. SOCIAL HISTORY: Smokes cigarettes 1 pack a day, also uses marijuana as well. FAMILY HISTORY: Noncontributory. REVIEW OF SYSTEMS: Otherwise, unobtainable. [facility] [address] [place] [address] CONSULTATION Name: LISET VILLEGAS Room #: 251-P [facility] IN ..#: [id number] Admission: 05/17/20 Attend Phys: India Garber MD Discharge: Date of : 82 Report #: [id number] PHYSICAL EXAMINATION: GENERAL: She appears chronically ill, undernourished. She is encephalopathic. She is jaundiced with icterus. VITAL SIGNS: Temperature 97.5, pulse 92, respirations 17, and blood pressure 103/60. SKIN: Warm, dry. HEENT: Normocephalic. Extraocular muscles are intact. NECK: Supple. LUNGS: Diminished breath sounds. HEART: Borderline tachycardic. I do not appreciate a murmur, appears to be regular. ABDOMEN: Some degree of firmness, did not appreciate any peritoneal signs. GENITOURINARY AND RECTAL: Deferred. LABORATORY DATA: Most recent, protime 19.2, INR of 1.8, it is down from admission of 30.3 and INR of 2.9. Lactic acid 1.1. Electrolytes: Sodium 142, potassium 4.0, chloride 108, bicarbonate is 17, anion gap of 17, BUN and creatinine 35 and 2.6, it is down from 4.1. AST 115, ALT of 53. Total bilirubin of 20.8, direct bilirubin of 17.7, albumin 1.5, total protein 5.1. Blood culture with growth of Enterococcus faecalis susceptible to ampicillin. CBC: White count of 23.9, H and H 11.3 and 34, MCV of 99.8, platelet count 117. UCG qualitative was negative. COVID was negative. ASSESSMENT AND PLAN: Enterococcus faecalis bacteremia. The patient is critically ill, hepatorenal syndrome, certainly at high risk for additional complications. In terms of the positive blood culture, we will continue therapy with ampicillin. Repeat the blood cultures, go ahead and check an echo as well, certainly have limited options in terms of synergistic therapy, I think in all likelihood. She is not a candidate for aggressive approach given her underlying issues in terms of any potential interventions. Continue to monitor expectantly in the event she wakes up with however to utilize incentive spirometer. I do not have a clear source at this point and I cannot entirely exclude a false positive given the late growth and a single culture, would treat as true positive for the moment. <ELECTRONICALLY SIGNED> By: Balta Phillips MD 05/21/20 0827 1314 1403 Balta Phillips MD /nt
[2020-05-21 08:41] LABS: ALBUMIN 1.4 g/dL (3.4-5.0); CALCIUM 8.4 mg/dL (8.5-10.1); CREATININE 1.4 mg/dL (0.6-1.0); PHOSPHORUS 1.8 mg/dL (2.5-4.9); POTASSIUM 3.1 mmol/L (3.5-5.1)
[2020-05-21 09:25] LABS: HCO3 24.5 mmol/L (22.0-26.0); PCO2 49.4 mmHg (35.0-45.0); PO2 67.7 mmHg (80.0-100.0); sO2 91.8 % (92.0-98.0)
[2020-05-21 09:26] LABS: pH 7.314 (7.360-7.450)
[2020-05-21 11:03] LABS: HEMATOCRIT 29.3 % (37.0-47.0); HEMOGLOBIN 9.7 gm/dL (12.0-15.0); MCH 32.9 pg (26.0-34.0); MCHC 33.1 g/dL (28.0-37.0); MCV 99.3 fL (80.0-100.0); PLATELET COUNT 119 thou/uL (150-400); RBC 2.95 mil/uL (4.20-5.00); RDW 21.3 % (10.5-14.5); WBC 23.5 thou/uL (4.0-11.0)
--- NOTE | 2020-05-21 11:04 | NUR ---
Nutrition: pt without nutrition x 4 days. Has CLD order. Tx to ICU. Has NGT. If safe to initiate TF or if pt requires intubation, REC Jevity 1.5 to reach 50 mL/hr or consider PPN for short term nutrition. IVFs could be changed to Clinimix PPN at 75 mL/hr
--- NOTE | 2020-05-21 11:17 | NUR ---
chart review. possible going to need to be intubated today. noted she restless and tachy. no anticipated dc over the weekend.
[2020-05-21 11:26] LABS: BE(vivo) -2.5 mmol/L (-2 to +3); HCO3 24.4 mmol/L (22.0-26.0); PCO2 50.9 mmHg (35.0-45.0); pH 7.299 (7.360-7.450); sO2 99.5 % (92.0-98.0)
[2020-05-21 11:31] LABS: ALBUMIN 1.4 g/dL (3.4-5.0); CALCIUM 8.3 mg/dL (8.5-10.1); CREATININE 1.4 mg/dL (0.6-1.0); POTASSIUM 3.1 mmol/L (3.5-5.1); TOTAL BILIRUBIN 21.2 mg/dL (0.2-1.0); TOTAL PROTEIN 5.3 g/dL (6.4-8.2)
[2020-05-21 13:17] LABS: METAMYELOCYTES 1 %
[2020-05-21 13:18] LABS: ANISOCYTOSIS 1+
--- NOTE | 2020-05-21 19:33 | NUR ---
RN ASSUMED PT'S CARE AT 0700AM, PT WAS AGITATION AND PT BECAME MORE HYPOXIC ( DE-SAT WITH O2 10L/MIN, RR 30-40), RN HAS NOTIFIED HOSIPTAL DR AND PULMONARY DR, PT WAS ININTUBATED ABOUT ABOUT 0945AM, PT IS ON VENTILATOR AND SEDATED, PT'S FIO2 IS CHANGED TO 50% FFROM 100% NOW,PT'S O2SAT KEEP AT 99-100%, PT IS ON BOTH WRIST RESTRAINTS, PT'S FAMILY HAS UPDATED PT'S INFORMATION. PT IS ON IV LEVOPHED 3MCG/MIN TO KEEP PT'S MAP >60, PT'S VS ARE STABLE BY THIS THIS TIME.
[2020-05-22] VITALS (98 sets, daily range): BP systolic 78–109; BP diastolic 33–63
[2020-05-22 05:22] LABS: ALBUMIN 1.7 g/dL (3.4-5.0); CALCIUM 8.4 mg/dL (8.5-10.1); CREATININE 1.8 mg/dL (0.6-1.0); MAGNESIUM 1.5 mg/dL (1.8-2.4); PHOSPHORUS 1.5 mg/dL (2.5-4.9); POTASSIUM 3.2 mmol/L (3.5-5.1)
--- NOTE | 2020-05-22 05:54 | NUR ---
ASSUMED PATIENT CARE AT 1845. PATIENTS BREATHING AND BLOOD PRESSURE REMAINED PARAMOUNT CONCERN FOR NURSE THROUGHOUT SHIFT. LEVOPHED TITRATED TO DESIRED AFFECT WITH PATIENTS MAP STAYING CONSISTENTLY WITHIN LIMITS. BREATHING STABLE ON VENTILATOR EVIDENCED BY ASSESSMENTS AND CONTINUOUS SATURATION MONITORING. ORAL CARE AND SUCTION PROVIDED FREQUENTLY TO PATIENT FOR SECRETIONS. DYSURIA NOTED WITH PATIENT PRODUCING AROUND 300 CC'S OF DARK MAROON COLORED URINE. PATIENTS BLOOD PRESSURE DID NOT RESPOND WELL TO REPOSITION EFFORTS EARLY IN SIFT.
[2020-05-22 11:33] LABS: HEMATOCRIT 28.3 % (37.0-47.0); HEMOGLOBIN 9.4 gm/dL (12.0-15.0); MCH 33.9 pg (26.0-34.0); MCHC 33.4 g/dL (28.0-37.0); MCV 101.4 fL (80.0-100.0); RBC 2.79 mil/uL (4.20-5.00); RDW 22.1 % (10.5-14.5); WBC 25.8 thou/uL (4.0-11.0)
[2020-05-22 12:23] LABS: MAGNESIUM 1.9 mg/dL (1.8-2.4); POTASSIUM 3.7 mmol/L (3.5-5.1)
--- NOTE | 2020-05-22 17:38 | NUR ---
SPOKE TO PT MOTHER ON PHONE AND THEN SHE VISITED WITH PATIENT FOR 2 HOURS. QUESTIONS ANSWERED AND SHE WAS UPDATED ON PLAN OF CARE. DR. KAUR WANTS TO KEEP PATIENT INTUBATED OVER THE WEEKEND DUE TO WITHDRAWL SYMPTOMS. SEDATED ON PROPOFOL AND LEVOPHED TO MAINTAIN MAP >60. LOW URINE OUTPUT. POTASSIUM AND MAGNESUIM REPLACED TODAY, RECHECK, K+ 3.7 AND MG++ 1.9
--- NOTE | 2020-05-22 19:18 | NUR ---
Care assumed a 1900. Plan to move pt to room 243 when RT available to assist.
--- NOTE | 2020-05-22 20:28 | NUR ---
Pt moved to room 243 with belongings without complications.
[2020-05-23] VITALS (56 sets, daily range): BP systolic 88–116; BP diastolic 44–69
[2020-05-23 05:39] LABS: ALBUMIN 1.5 g/dL (3.4-5.0); CALCIUM 7.9 mg/dL (8.5-10.1); CREATININE 2.1 mg/dL (0.6-1.0); MAGNESIUM 1.6 mg/dL (1.8-2.4); PHOSPHORUS 1.5 mg/dL (2.5-4.9); POTASSIUM 3.7 mmol/L (3.5-5.1)
--- NOTE | 2020-05-23 06:30 | NUR ---
No progress toward discharge goals. Urine output < 25cc/hr, dark brownish red color with sediment, no clots. Levophed gtt titrated from 20 mcg/min to 22 mcg/min to maintain MAP >60. Propofol titrated to from 20 mgc/kg/min up to 25 mcg/kg/min to maintain RAAS of -2 to -3 -- pt still opens eyes when turned or suctioned. Magnesium level 1.6 this a.m.; magnesium replacement IVPB per orders. NG currently clamped after Lactulose administration. Lung sounds remain coarse throughout; suctioning small to moderate amounts of thick yellow q 2-3 hours.
[2020-05-23 10:33] LABS: HEMATOCRIT 27.5 % (37.0-47.0); MCH 33.5 pg (26.0-34.0); MCHC 32.9 g/dL (28.0-37.0); MCV 101.7 fL (80.0-100.0); PLATELET COUNT 165 thou/uL (150-400); RDW 21.8 % (10.5-14.5); WBC 28.9 thou/uL (4.0-11.0)
[2020-05-23 12:59] LABS: ANISOCYTOSIS 1+; METAMYELOCYTES 1 %; PLATELET ESTIMATE NORMAL
--- NOTE | 2020-05-23 18:20 | NUR ---
SPOKE TO PATIENTS MOTHER TODAY AND UPDATED HER ON HER DAUGHTERS PROGRESS AND PLAN OF CARE. SEDATION CHANGED FROM PROPOFOL TO PRECEDEX, TOLERATING WELL. MEDODRINE STARTED AND LEVOPHED TITRATED DOWN FROM 22 MCG TO 14 MCG THIS SHIFT.
[2020-05-24] VITALS (49 sets, daily range): BP systolic 92–206; BP diastolic 52–148
[2020-05-24 04:06] LABS: BE(vivo) -3.2 mmol/L (-2 to +3); HCO3 20.5 mmol/L (22.0-26.0); PCO2 31.3 mmHg (35.0-45.0); PO2 99.1 mmHg (80.0-100.0); pH 7.434 (7.360-7.450); sO2 97.8 % (92.0-98.0)
[2020-05-24 06:04] LABS: HEMATOCRIT 27.8 % (37.0-47.0); HEMOGLOBIN 9.2 gm/dL (12.0-15.0); MCH 33.2 pg (26.0-34.0); MCHC 33.2 g/dL (28.0-37.0); PLATELET COUNT 185 thou/uL (150-400); RBC 2.78 mil/uL (4.20-5.00); RDW 21.7 % (10.5-14.5); WBC 30.4 thou/uL (4.0-11.0)
[2020-05-24 06:25] LABS: ALBUMIN 1.3 g/dL (3.4-5.0); CREATININE 2.2 mg/dL (0.6-1.0); PHOSPHORUS 2.6 mg/dL (2.5-4.9); POTASSIUM 4.1 mmol/L (3.5-5.1); TOTAL BILIRUBIN 21.3 mg/dL (0.2-1.0); TOTAL PROTEIN 5.9 g/dL (6.4-8.2)
--- NOTE | 2020-05-24 09:46 | NUR ---
ASSUMED CARE OF PT AT 0700. DR. GUY AT BEDSIDE AT 0722, NO NEW ORDERS GIVEN DR. PATE AT BEDSIDE AT 0845, NO NEW ORDERS GIVEN DR. JAIME AT BEDSIDE, SHE SAID WE NEED TO CONTINUE TO WEEN THE LEVO AND KEEP HER COMFORTABLE WITH SEDATION BECAUSE SHE IS STILL DETOXING. ON SEDATION VACATION PT PULLS ON RESTRAINTS AND TRIES TO SIT UP BUT IS NOT FOLLOWING COMMANDS.
[2020-05-24 11:57] LABS: ABSOLUTE NEUTROPHILS 21.9 thou/uL (1.4-8.2); ANISOCYTOSIS 1+; METAMYELOCYTES 2 %; PLATELET ESTIMATE NORMAL
--- NOTE | 2020-05-24 14:06 | PATH ---
[facility] [address] [place] [address] PATHOLOGY RPT PROCEDURE Name: VILLEGASMELBAWESTON CARBAJAL Room #: 243-P ADM IN M.R.#: [id number] Admission: 05/17/20 Date of : 82 Discharge: Report #: [id number] Path Case #: [id number] [facility] Accession Number: [id number] . 01 Material submitted: . pyloric antrum - ANTRUM BX R/O H. PYLORI . 01 Clinical history: . MELENA MILD PORTAL HYPERTENSIVE GASTROPATHY, BRIDGETT-REED TEAR X 2 HIATAL HERNIA, SCHATZKI RING . 02 Diagnosis: Stomach "antrum", endoscopic biopsy: - Gastric antral mucosa with reactive epithelial changes, and hypervascularity and edema of the lamina propria, consistent with portal hypertensive gastropathy. - Negative for active inflammation, intestinal metaplasia, dysplasia, and malignancy. - Negative for Helicobacter pylori. (TERRI/jame; 05/24/2020) LBQ 05/24/2020 1355 Local . 02 Electronically signed: . Artemio Kuhn MD, Pathologist NPI- [id number] . 01 Gross description: . Received in formalin labeled "Melba Villegas, BX antrum rule out H. pylori" is a fragment of duong-brown soft tissue measuring 0.3 x 0.2 x 0.1 cm. The specimen is submitted entirely in A1. ([facility]; 05/22/2020) [facility] 05/22/2020 1209 Local . 02 Microscopic: . Immunohistochemical stain results (properly controlled) Helicobacter pylori (A1) - Negative for organisms . 02 Pathologist provided ICD-10: K92.1 . 02 CPT . 103099, K09075 Specimen Comment: A courtesy copy of this report has been sent to [phone] Specimen Comment: Report sent to / Performed at: [address] [facility], [place], [place] [id number] [place] [address] PATHOLOGY RPT PROCEDURE Name: MELBA VILLEGAS Room #: 243-P ADM IN M.R.#: [id number] Admission: 05/17/20 Date of : 82 Discharge: Report #: [id number] Path Case #: [id number] MD Michael Cuevas MD Phone: [phone] Performed at: [address] [id number] MD Narcisa Myers MD Phone: [phone]
--- NOTE | 2020-05-24 14:41 | NUR ---
chart review, she cont to require sedation, vent and nutritional support. cm visited with per mom nathalia, she had came for 15min visit already today and plans on coming back up tomorrow afternoon. " thank you for calling"/mom nathalia. will cont following as needed for dc needs.
[2020-05-25] VITALS (51 sets, daily range): BP systolic 77–142; BP diastolic 44–85
[2020-05-25 05:42] LABS: HEMATOCRIT 29.9 % (37.0-47.0); MCH 33.5 pg (26.0-34.0); MCHC 33.5 g/dL (28.0-37.0); MCV 100.1 fL (80.0-100.0); RBC 2.99 mil/uL (4.20-5.00); RDW 21.4 % (10.5-14.5); WBC 35.3 thou/uL (4.0-11.0)
[2020-05-25 05:56] LABS: INR 1.6; PROTIME 17.3 Seconds (9.3-11.4)
[2020-05-25 06:12] LABS: ALBUMIN 1.3 g/dL (3.4-5.0); CALCIUM 8.3 mg/dL (8.5-10.1); CREATININE 2.5 mg/dL (0.6-1.0); POTASSIUM 3.9 mmol/L (3.5-5.1)
[2020-05-25 06:18] LABS: ALBUMIN 1.4 g/dL (3.4-5.0); DIRECT BILIRUBIN 18.7 mg/dL (<0.1-0.2); TOTAL BILIRUBIN 22.1 mg/dL (0.2-1.0)
--- NOTE | 2020-05-25 15:21 | NUR ---
PT'S MOTHER, MATT, HERE TO VISIT W/ PT AT BEDSIDE. UPDATED ON PT CONDITION. QUESTIONS ANSWERED. REASSURANCES AND EMOTIONAL SUPPORT PROVIDED.
--- NOTE | 2020-05-25 16:48 | NUR ---
CPAP TRIAL TODAY. DID WELL, BUT WAS PUT BACK ON A RATE DUE TO FATIGUE RESULTING IN LOW TIDAL VOLUMES. URINE REMAINS DARK AND BILIOUS WITH OLIGURIA CONTINUING. ON SEDATION VACATION, PT OPENS EYES, SQUEEZES HANDS AND OPENS MOUTH FOR ORAL CARE AND SUCTION ON REQUEST. PT TEARFUL DURING VISIT WITH MOTHER. DUE TO PROGRESSING RENAL FAILURE AND LIVER FAILURE, PT OVERALL NOT PROGRESSING TOWARD GOALS DESPITE DOING WELL WITH CPAP TRIAL.
[2020-05-26] VITALS (45 sets, daily range): BP systolic 51–114; BP diastolic 36–68
[2020-05-26 05:48] LABS: HEMATOCRIT 26.1 % (37.0-47.0); HEMOGLOBIN 8.8 gm/dL (12.0-15.0); INR 1.7; MCH 34.2 pg (26.0-34.0); MCHC 33.8 g/dL (28.0-37.0); MCV 101.1 fL (80.0-100.0); PROTIME 18.3 Seconds (9.3-11.4); RBC 2.58 mil/uL (4.20-5.00); WBC 26.1 thou/uL (4.0-11.0)
[2020-05-26 06:15] LABS: DIRECT BILIRUBIN 13.6 mg/dL (<0.1-0.2); TOTAL BILIRUBIN 16.9 mg/dL (0.2-1.0); TOTAL PROTEIN 4.8 g/dL (6.4-8.2)
[2020-05-26 06:18] LABS: CREATININE 2.9 mg/dL (0.6-1.0)
--- NOTE | 2020-05-26 11:10 | NUR ---
Paged Renal no urine output despite bolus. Awaiting call back.
--- NOTE | 2020-05-26 12:10 | NUR ---
Paged Dr. Frias through his office. Reported no urine output. Bolus complete. Awaiting call back. Precedex off all day. Pt following commands. Difficult to nod head yes and no.
--- NOTE | 2020-05-26 14:00 | NUR ---
Dr. Frias called back update given. vss given. no urine output. pt very swollen. asked for family's phone number. Orders given to titrate Levophed for Map > 70. Awaiting RX.
[2020-05-27] VITALS (61 sets, daily range): BP systolic 84–119; BP diastolic 49–76
[2020-05-27 04:43] LABS: HEMATOCRIT 24.1 % (37.0-47.0); HEMOGLOBIN 8.2 gm/dL (12.0-15.0); MCH 34.4 pg (26.0-34.0); MCHC 34.2 g/dL (28.0-37.0); MCV 100.6 fL (80.0-100.0); RBC 2.4 mil/uL (4.20-5.00); RDW 21.5 % (10.5-14.5); WBC 27.5 thou/uL (4.0-11.0)
[2020-05-27 04:56] LABS: BE(vivo) -7.1 mmol/L (-2 to +3); HCO3 17.8 mmol/L (22.0-26.0); PCO2 32.9 mmHg (35.0-45.0); PO2 92.1 mmHg (80.0-100.0); sO2 96.8 % (92.0-98.0)
[2020-05-27 05:05] LABS: INR 1.7; PROTIME 17.2 Seconds (9.3-11.4)
[2020-05-27 06:02] LABS: CALCIUM 8.4 mg/dL (8.5-10.1); CREATININE 2.7 mg/dL (0.6-1.0); POTASSIUM 3.9 mmol/L (3.5-5.1); TOTAL BILIRUBIN 20.4 mg/dL (0.2-1.0)
--- NOTE | 2020-05-27 10:20 | NUR ---
ON THE VENT SEDATED WITH PRECEDEX. AWAKENS AND FOLLOWS COMMANDS AND NODS TO Y/N QNS. GETS ANXIOUS AT TIMES. VITALS STABLE. PLACED ON CPAP THIS MORNING BY RT CATA AND TOLERATING WELL. PATIENT'S MOTHER CALLED AND WAS UPDATED AND QNS ANSWERED. WILL CONTINUE WITH POC.
--- NOTE | 2020-05-27 13:59 | NUR ---
chart review. she remains on vent, nutritional support. noted little to no outpt. not anticipated dc over the weekend. will cont following as needed for dc needs.
--- NOTE | 2020-05-27 14:33 | NUR ---
PATIENT'S MOTHER IN TO SEE PATIENT QNS ANSWERED, ALSO SHE PUT SON ON SPEAKER PHONE AND I ANSWERED SOME OF THE QNS THAT HE HAD. PATIENT CONTINUES TO BE ON THE VENT, NO CPAP THIS AFTERNOON PER DR. FAIRCHILD.
--- NOTE | 2020-05-27 20:54 | NUR ---
[place] and white ports of right IJ injected with Cath-rola due to being very, very sluggish.
[2020-05-28] VITALS (46 sets, daily range): BP systolic 100–123; BP diastolic 63–79
[2020-05-28 04:28] LABS: BE(vivo) -7.6 mmol/L (-2 to +3); HCO3 16.9 mmol/L (22.0-26.0); PCO2 30.6 mmHg (35.0-45.0); PO2 86.2 mmHg (80.0-100.0); sO2 96.4 % (92.0-98.0)
[2020-05-28 05:10] LABS: CALCIUM 8.5 mg/dL (8.5-10.1); HEMATOCRIT 22.7 % (37.0-47.0); HEMOGLOBIN 7.6 gm/dL (12.0-15.0); MCH 33.9 pg (26.0-34.0); MCHC 33.3 g/dL (28.0-37.0); MCV 101.8 fL (80.0-100.0); POTASSIUM 3.7 mmol/L (3.5-5.1); RBC 2.23 mil/uL (4.20-5.00); RDW 22.3 % (10.5-14.5); WBC 27.2 thou/uL (4.0-11.0)
[2020-05-28 05:15] LABS: CREATININE 2.8 mg/dL (0.6-1.0)
--- NOTE | 2020-05-28 09:26 | NUR ---
ON THE VENT SEDATED WITH PRECEDEX, ON SEDATION VACATION OPENS AND FOLLOWS COMMANDS. VITALS STABLE. ON CPAP AT THIS TIME. TOLERATING TUBEFEEDING WITH MINIMAL RESIDUALS. WILL CONTINUE WITH POC.
--- NOTE | 2020-05-28 17:24 | NUR ---
PATIENT'S MOTHER CAME BY THIS AFTERNOON AND WAS UPDATED AND QNS ANSWERED.
[2020-05-29] VITALS (24 sets, daily range): BP systolic 96–131; BP diastolic 55–95
[2020-05-29 04:32] LABS: HEMATOCRIT 21.3 % (37.0-47.0); HEMOGLOBIN 7.1 gm/dL (12.0-15.0); MCH 33.9 pg (26.0-34.0); MCHC 33.5 g/dL (28.0-37.0); MCV 101.3 fL (80.0-100.0); RBC 2.1 mil/uL (4.20-5.00); RDW 22.2 % (10.5-14.5); WBC 26.8 thou/uL (4.0-11.0)
[2020-05-29 04:52] LABS: INR 1.8; PROTIME 19.3 Seconds (9.3-11.4)
[2020-05-29 04:57] LABS: CALCIUM 8.9 mg/dL (8.5-10.1); CREATININE 2.7 mg/dL (0.6-1.0); POTASSIUM 3.7 mmol/L (3.5-5.1)
[2020-05-29 05:16] LABS: ALBUMIN 3.4 g/dL (3.4-5.0); DIRECT BILIRUBIN 12.1 mg/dL (<0.1-0.2); TOTAL PROTEIN 6.5 g/dL (6.4-8.2)
--- NOTE | 2020-05-29 18:11 | NUR ---
patient not progressing towards plan of care. patient did not cpap trial today. patient on precedex. dr garvey spoke with the mother Therease about patient poor prognosis. Therease came to visit daughter today.
[2020-05-30] VITALS (24 sets, daily range): BP systolic 96–117; BP diastolic 57–71
[2020-05-30 05:39] LABS: HEMOGLOBIN 6.8 gm/dL (12.0-15.0)
[2020-05-30 05:40] LABS: MCH 34.5 pg (26.0-34.0); MCV 101.3 fL (80.0-100.0); RBC 1.98 mil/uL (4.20-5.00); RDW 21.8 % (10.5-14.5); WBC 28.1 thou/uL (4.0-11.0)
--- NOTE | 2020-05-30 05:47 | NUR ---
PT TOLERATING VENT, MOST CARES; PUSHES BACK ON RN WITH BACK AND ARMS WHEN TURNING. PRN MEDS GIVEN FOR CPOT PAIN AND RESTLESSNESS. VSS, TOLERATING TUBE FEEDS. PT DOES NOT RESPOND TO THIS RN EXCEPT TO OPEN EYES TO PAIN OR COMMAND. JAUNDICED, EDEMA.
[2020-05-30 05:48] LABS: CALCIUM 8.7 mg/dL (8.5-10.1); CREATININE 2.6 mg/dL (0.6-1.0)
--- NOTE | 2020-05-30 09:27 | NUR ---
ASSUMED CARE OF PT AT 0700. MOTHER CALLED AT 0830 BUT I WAS IN A ROOM WITH A PT. BEST FRIEND CALLED AFTER THAT AND CHARGE NURSE INFORMED HER THAT SHE WOULD HAVE TO GET ANY AND ALL INFORMATION FROM THE MOTHER GI AT BEDSIDE AT 0927, NO NEW ORDERS GIVEN
[2020-05-31] VITALS (22 sets, daily range): BP systolic 88–120; BP diastolic 30–68
[2020-05-31 05:56] LABS: HEMOGLOBIN 6.6 gm/dL (12.0-15.0)
[2020-05-31 05:59] LABS: MCH 34.2 pg (26.0-34.0); MCHC 33.6 g/dL (28.0-37.0); MCV 101.7 fL (80.0-100.0); RBC 1.92 mil/uL (4.20-5.00); RDW 21.7 % (10.5-14.5); WBC 29.3 thou/uL (4.0-11.0)
[2020-05-31 06:06] LABS: HEMATOCRIT 19.5 % (37.0-47.0)
[2020-05-31 06:34] LABS: ALBUMIN 3.6 g/dL (3.4-5.0); CALCIUM 8.8 mg/dL (8.5-10.1); CREATININE 2.9 mg/dL (0.6-1.0); PHOSPHORUS 5.6 mg/dL (2.5-4.9); POTASSIUM 4.6 mmol/L (3.5-5.1)
--- NOTE | 2020-05-31 08:02 | NUR ---
ASSUMED CARE OF PT AT 0700. DR. PATE AT BEDSIDE AT 0800, NO NEW ORDERS GIVEN
--- NOTE | 2020-05-31 09:30 | NUR ---
chart review. noted possible dr barlow will be meeting with her mom thereasa today. pt remains on vent, nutritional support. will cont following as needed for dc needs.
[2020-05-31 11:45] LABS: PROTIME 18.8 Seconds (9.3-11.4)
[2020-05-31 11:49] LABS: ALBUMIN 3.6 g/dL (3.4-5.0); DIRECT BILIRUBIN 11.8 mg/dL (<0.1-0.2); TOTAL PROTEIN 6.6 g/dL (6.4-8.2)
[2020-05-31 11:52] LABS: TOTAL BILIRUBIN 16.8 mg/dL (0.2-1.0)
[2020-05-31 11:55] LABS: INR 1.7
[2020-06-01] VITALS (23 sets, daily range): BP systolic 92–111; BP diastolic 53–68
[2020-06-01 06:28] LABS: HEMOGLOBIN 6.5 gm/dL (12.0-15.0); WBC 31.7 thou/uL (4.0-11.0)
[2020-06-01 06:30] LABS: MCH 33.9 pg (26.0-34.0); MCV 102.7 fL (80.0-100.0); RBC 1.92 mil/uL (4.20-5.00); RDW 21.7 % (10.5-14.5)
[2020-06-01 06:33] LABS: INR 1.8; PROTIME 19.1 Seconds (9.3-11.4)
[2020-06-01 06:47] LABS: HEMATOCRIT 19.7 % (37.0-47.0)
[2020-06-01 06:58] LABS: ALBUMIN 3.5 g/dL (3.4-5.0); CALCIUM 8.7 mg/dL (8.5-10.1); CREATININE 3.4 mg/dL (0.6-1.0); PHOSPHORUS 6.5 mg/dL (2.5-4.9)
[2020-06-01 07:05] LABS: ALBUMIN 3.5 g/dL (3.4-5.0); DIRECT BILIRUBIN 10.6 mg/dL (<0.1-0.2); TOTAL PROTEIN 6.1 g/dL (6.4-8.2)
[2020-06-01 07:20] LABS: TOTAL BILIRUBIN 15.4 mg/dL (0.2-1.0)
--- NOTE | 2020-06-01 11:11 | NUR ---
discussed during rounds with icu, possible will be palliative extubated and possible might require hospice house. dr barlow visited with pt mom. will cont following as needed for dc needs.
--- NOTE | 2020-06-01 12:29 | NUR ---
1229 - RN SPOKE WITH THE MOTHER OF THE PTMATT TO COORDINATE TIME OF ARRIVAL. PER MOTHER SHE STATED THAT NEITHER SHE NOR HER DAUGHTER WILL BE COMING TO VISIT THE PATIENT TODAY AT THIS TIME. THE SON AND FATHER ARE BY BEDSIDE AT THIS TIME THEY HAVE ARRIVED AT 1220 AND HAS BEEN FOLLOWING OUR VISITATION GUIDELINE. WE WILL BE WITHDRAWING CARE FOR THE PT ONCE ALL APPROPERIATE STAFF MEMBERS ARE PRESENT. GAVE VERBAL CONSENT FOR DOUBLE RN PRONOUNCEMENT. RN WILL NOTIFY MTN SHORTLY.
[2020-06-02] VITALS (30 sets, daily range): BP systolic 99–121; BP diastolic 52–74
--- NOTE | 2020-06-02 07:22 | NUR ---
ASSUMED PT CARE AT 1900. VSS. PT VENTED, INTUBATED AND SEDATED WITH PRECEDEX AT 1.4. PT OPENS EYES SPONTEIOUSLY, FACIAL GRIMACES TO PAIN, DOESNT FOLLOW COMMANDS, AND RANDOMLY MOVES HER HANDS IN AND UP. PT CONTINUES TO AGONALLY BREATHE, DECREASED U/O; ONLY 100ML THIS SHIFT. PT HAD A BM THIS AM, FRESH BRIGHT RED BLOOD TRICKLES OUT ALONG SIDE VERY YELLOW SEMI SOLID BM. WILL CONTINUE TO MONITOR PER POC
--- NOTE | 2020-06-02 09:47 | NUR ---
ASSUMED CARE OF PT AT 0700 SPOKE TO PT'S MOTHER AT 0830 AND SHE STATED THAT THE SON AND FATHER ARE GOING TO COME IN AGAIN TODAY TO SAY THEIR GOODBYE'S AND THEY WILL BE HERE NO LATER THAN NOON. AFTER THEY SAY GOODBYE THE MOTHER STATED THAT WE CAN EXTUBATE HER AND SHE WOULD LIKE SOMEONE TO CALL HER WHEN SHE EXPIRES.
--- NOTE | 2020-06-02 16:15 | NUR ---
possible will be extub today after brother and dad visit to say good bye. report from bedside nurse that she was just extubated [id number]. cm will reach out to pt mother therease.
--- NOTE | 2020-06-03 04:10 | NUR ---
ASSUMED CARE OF PT FROM ICU AT 1900HRS. PT ONLY RESPONNDS TO PAIN. FALL PRECAUTION IN PLACE. ONLY PROVIDING COMFORT CARE. ORAL CARE PROVIDED. CABRAL IN PLACE AND PATIENT. BROTHER VISITED PT THIS EVENING. 2L O2 VIA NC CONTINUED. WILL CONTINUE TO MONITOR.
--- NOTE | 2020-06-03 12:39 | NUR ---
PT'S MOTHER AND CARE TEAM INDICATED THAT REFERRAL TO HOSPICE HOUSE IS APPROPRIATE. REFERRAL SENT. WALLY TO COME AND DO BEDSIDE EVAL FOR POSSIBLE ADMISSION TO [facility]. CM TO FOLLOW INDICATED WITH DC PLANNING.
--- NOTE | 2020-06-03 14:19 | NUR ---
cm received call from nathalia baltazar pt mom, had question for [employer]. cm sent message for [employer] to call her mom at [phone].
--- NOTE | 2020-06-03 15:53 | NUR ---
PATIENT REMAINS COMFORT CARE. AFTER DISCUSSION WITH MOTHER (MATT) AND CASE MANAGEMENT, PATIENT WILL DISCHARGE TO HOSPICE HOUSE. TRANSPORT ARRANGED THROUGH [facility], TIME OF DEPARTURE 1929. PATIENT REMAINS MINIMALLY RESPONSIVE TO STIMULI, DOES NOT TRACK. PRN MORPHINE GIVEN PER EMAR. 2L NC FOR COMFORT. FAMILY AT BEDSIDE THROUGH OUT THE DAY. PATIENT TO DISCHARGE WITH CABRAL AND CENTRAL LINE IN PLACE.
--- NOTE | 2020-06-03 20:04 | NUR ---
FD TO TRANSPORT PT TO HOSPICE AT 1950 HRS. REPORT GIVEN TO HOSPICE BY JEN AVILEZ. BROTHER AJAY WAS INFORMED ABOUT TRANSFER. SOME BELONGINGS LEFT IN THE ROOM. BROTHER INFORMED AND WILL COME TO COLLECT BELONGINGS.
== END 2020-06-03 19:50 | disposition hospice, home (50) | DRG 870 ==
LOC: ER 16:56 → 2N 20:11 → EROBS 20:11 → 2N 05-18 16:28 → ICU 05-20 14:12 → 4W 06-02 17:39
PROVIDERS: Emergency Medicine; Hospitalist; Internal Medicine Nephrology; Internal Medicine Pulmonary Disease; Nurse Practitioner; Nurse Practitioner Family; Pediatrics; ADMIT Hospitalist; ATTEND Hospitalist
PROC: 30233N1 Transfusion of Nonautologous Red Blood Cells into Peripheral Vein, Percutaneous Approach (ICD-10-PCS; principal; 2020-05-18)
PROC: 0DB78ZX Excision of Stomach, Pylorus, Via Natural or Artificial Opening Endoscopic, Diagnostic (ICD-10-PCS; 2020-05-19)
PROC: 02HV33Z Insertion of Infusion Device into Superior Vena Cava, Percutaneous Approach (ICD-10-PCS; 2020-05-20)
PROC: 0BH17EZ Insertion of Endotracheal Airway into Trachea, Via Natural or Artificial Opening (ICD-10-PCS; 2020-05-21)
PROC: 5A1955Z Respiratory Ventilation, Greater than 96 Consecutive Hours (ICD-10-PCS; 2020-05-21)
DX: A41.81 Sepsis due to Enterococcus (principal); K72.00 Acute and subacute hepatic failure without coma; E43 Unspecified severe protein-calorie malnutrition; K22.6 Gastro-esophageal laceration-hemorrhage syndrome; J96.01 Acute respiratory failure with hypoxia; J18.9 Pneumonia, unspecified organism; K20.91 Esophagitis, unspecified with bleeding; R65.21 Severe sepsis with septic shock; G92 Toxic encephalopathy; N17.9 Acute kidney failure, unspecified; K76.6 Portal hypertension; D68.9 Coagulation defect, unspecified; E72.20 Disorder of urea cycle metabolism, unspecified; E87.0 Hyperosmolality and hypernatremia; D62 Acute posthemorrhagic anemia; F10.239 Alcohol dependence with withdrawal, unspecified; I10 Essential (primary) hypertension; F41.9 Anxiety disorder, unspecified; F32.9 Major depressive disorder, single episode, unspecified; D72.829 Elevated white blood cell count, unspecified; G62.9 Polyneuropathy, unspecified; B95.2 Enterococcus as the cause of diseases classified elsewhere; K70.10 Alcoholic hepatitis without ascites; E87.6 Hypokalemia; E83.42 Hypomagnesemia; F19.10 Other psychoactive substance abuse, uncomplicated; D69.6 Thrombocytopenia, unspecified; K22.2 Esophageal obstruction; K44.9 Diaphragmatic hernia without obstruction or gangrene; K31.89 Other diseases of stomach and duodenum; K74.60 Unspecified cirrhosis of liver; Z82.49 Family history of ischemic heart disease and other diseases of the circulatory system; Z79.899 Other long term (current) drug therapy
CPT/HCPCS: 10045; 10078; 10081; 62110; 62900; 70005